=== PATIENT | female | born 1970 | race Caucasian/White ===

== ENCOUNTER 2024-01-10 15:19 | Emergency (ER) | payer SELFPAY ==
[~2024-01-10] VITALS: Ht 167.6 cm; Wt 65.0 kg
[2024-01-10 15:27] VITALS: O2SAT 99
[2024-01-10] MEDS ORDERED: ACETAMINOPHEN 325MG TABLET PO ONE (16:00)
[2024-01-10] MEDS ORDERED: LIDO700A15 TP (16:41)
[2024-01-10] MEDS ORDERED: METH-653 MT (16:41)
[2024-01-10] MEDS: ACETAMINOPHEN 500MG TABLET PO ONE (17:08)
[2024-01-10 17:10] VITALS: BP 122/73; PULSE 99; RESP 16; TEMP 36.78072; O2SAT 99
== END 2024-01-10 17:12 | disposition home or self-care (01) ==
LOC: ER 15:19
DX: S29.9XXA Unspecified injury of thorax, initial encounter (principal); Y08.89XA Assault by other specified means, initial encounter; Y93.89 Activity, other specified; Y92.89 Other specified places as the place of occurrence of the external cause; Y99.8 Other external cause status
CPT/HCPCS: 71045; 99283